=== PATIENT | male | born 1950 | race Caucasian/White ===

== ENCOUNTER 2021-02-21 15:34 | Outpatient (CLI) | payer MEDICARE, OTHER, SELFPAY ==
--- NOTE | 2021-02-21 15:43 | MR_ITS ---
WS: [id number] MRI CERVICAL SPINE NONCONTRAST TECHNIQUE: Sagittal T1, T2 and STIR imaging. Axial T2, gradient, and fiesta imaging. CLINICAL INFORMATION: OSTEOARTHRITIS OF SPINE WITH RADICULOPATHY, CERVICAL REGION COMPARISON: None. FINDINGS: Some images degraded by motion artifact. Straightening of the normal cervical lordosis. Disc osteophyte protrusions worse at C5-C6 with modera te central canal stenosis at this level. Slight indentation on the cervical cord. Cord signal remains normal. Mild central canal stenosis C3-C4 C4-C5 and moderate at C6-7. C2-C3: Mild disc osteophyte complex with endplate ridging. Mild left greater than right bony foramina l narrowing. C3-C4: Disc osteophyte complex with endplate ridging. Mild central canal stenosis. Moderate left grea ter than right bony foraminal narrowing with moderate facet arthropathy worse in the left. C4-C5: Small central disc protrusion with disc osteophytic ridging. Mild central canal stenosis and s light contact of the cervical cord. Moderate right greater than left bony foraminal narrowing. Mild f acet arthropathy. C5-C6: Central disc osteophyte protrusion with indentation and slight flattening of the cervical cord . Moderate central canal stenosis. Moderate to severe left greater than right bony foraminal narrowin g. Moderate facet arthropathy. C6-C7: Disc osteophyte complex with endplate ridging. Moderate central canal stenosis. Severe bilater al bony foraminal narrowing right greater than left. C7-T1: Mild disc bulging. Moderate left and mild right bony foraminal narrowing. Spinal canal is bullard nt. Small amount of edema involving the left C3-4 articulating facets with periarticular edema likely deg enerative or inflammatory. Moderate left C3-4 facet arthropathy at this level. IMPRESSION: 1. Straightening of the normal cervical lordosis. 2. Disc osteophyte protrusion C5-C6 with moderate central canal stenosis and slight indentation on c ervical cord. 3. Mild central canal stenosis C3-C4 C4-C5 and moderate at C6-C7. 4. Multilevel moderate to severe bony foraminal narrowing worse at left C4-5, left C5-C6, and bilate ral C6-7 worse in the right. 5. Edema in the left C3-4 articulating facets consistent with synovitis or degenerative change. 6. Cord signal is normal.
== END 2021-02-21 15:35 | disposition home or self-care (01) ==
PROVIDERS: Visit Provider Registered Nurse
DX: M47.22 Other spondylosis with radiculopathy, cervical region (principal); R60.0 Localized edema; M48.02 Spinal stenosis, cervical region; M25.78 Osteophyte, vertebrae
CPT/HCPCS: 72141